=== PATIENT | male | born 1970 | race Caucasian/White ===

== ENCOUNTER → 2016-11-25 | Outpatient (CLI) | payer MEDICARE ==
--- NOTE | 2016-11-25 08:33 | RAD ---
Complete abdominal ultrasound 11/25/2016 Indication: Elevated liver and ascites. Comparison study: None Discussion: Ultrasound evaluation of the abdomen was performed. Static images are submitted to PACS. The pancreas is partially visualized. Visualized portions of the pancreas are grossly unremarkable. The aorta and IVC are partially visualized but otherwise grossly unremarkable. The gallbladder is grossly unremarkable in appearance without evidence of wall thickening stones, or sludge. Common bile duct is nondilated measuring between 3 and 4 mm. Right kidney is normal in appearance measuring 10.5 cm in length. No hydronephrosis or focal renal lesion is seen. Spleen is normal in size measuring between 10 and 11 cm in diameter. Liver size is not assessed secondary to partial visualization of the liver secondary to overlying gas-filled bowel. The liver is diffusely hyperechoic suggesting hepatic steatosis. No other focal hepatic lesions are identified on provided images. Impression: 1. Somewhat limited evaluation of liver due to overlying gas-filled bowel. Hepatic steatosis is noted. 2. No other acute intra-abdominal abnormalities are identified.
== END | disposition home or self-care (01) ==
LOC: US 07:21
PROVIDERS: ATTEND Nurse Practitioner Occupational Health
DX: R79.89 Other specified abnormal findings of blood chemistry (principal)
CPT/HCPCS: 76700